=== PATIENT | male | born 1945 | race Caucasian/White ===

== ENCOUNTER 2022-10-27 09:15 | Outpatient (CLI) | payer OTHER, MEDICARE | END 2022-10-27 23:59 | disposition critical access hospital (66) | LOC: EMS 09:15 | DX: M25.512 Pain in left shoulder (principal); R10.9 Unspecified abdominal pain; V23.49XA Other motorcycle driver injured in collision with car, pick-up truck or van in traffic accident, initial encounter; Y92.413 State road as the place of occurrence of the external cause | CPT/HCPCS: A0425; A0429 ==

== ENCOUNTER 2022-10-27 09:41 | Emergency (ER) | payer OTHER, MEDICARE ==
[2022-10-27] MEDS ORDERED: iohexoL-300 100 ML VIAL ONE (09:50)
[2022-10-27] MEDS ORDERED: MORPHINE 2 MG/ML CARPUJECT IVP STA (09:56)
[2022-10-27] MEDS ORDERED: PROPOFOL 200 MG/20 ML VIAL IVP STA (09:56)
[2022-10-27 10:07] LABS: BASOPHILS # (AUTO) 0.1 10^3/uL (0.0-0.1); BASOPHILS % (AUTO) 0.6 %; EOSINOPHILS % (AUTO) 0.4 %; HCT - HEMATOCRIT 45.7 % (42.0-52.0); HGB - HEMOGLOBIN 15.1 g/dL (14.0-18.0); LYMPHOCYTES # (AUTO) 1.1 10^3/uL (1.5-3.5); LYMPHOCYTES % (AUTO) 12.7 %; MEAN CORPUSCULAR VOLUME 90.9 fL (80.0-94.0); MEAN PLATELET VOLUME 10.1 fL (7.4-11.4); MONOCYTES # (AUTO) 0.6 10^3/uL (0.0-1.0); MONOCYTES % (AUTO) 7.1 %; NEUTROPHILS # (AUTO) 6.5 10^3/uL (1.5-6.6); NEUTROPHILS % (AUTO) 78.8 %; PLT - PLATELET COUNT 234 10^3/uL (130-450); RED BLOOD COUNT 5.03 10^6/uL (4.70-6.10); RED CELL DISTRIBUTION WIDTH 13.3 % (12.0-15.0); WHITE BLOOD COUNT 8.3 x10^3/uL (4.8-10.8)
[2022-10-27 10:14] LABS: INR 1.1 (0.8-1.2); PT - PROTHROMBIN TIME 12.2 secs (9.9-12.6)
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
[2022-10-27 10:20] LABS: ALBUMIN 4.5 g/dL (3.2-5.5); ALBUMIN/GLOBULIN RATIO 1.7 (1.0-2.2); BILIRUBIN,TOTAL 0.6 mg/dL (0.2-1.0); CALCIUM 10.2 mg/dL (8.5-10.3); CREATININE 0.8 mg/dL (0.6-1.3); POTASSIUM 3.5 mmol/L (3.5-4.5); TOTAL PROTEIN 7.2 g/dL (6.4-8.9)
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
--- NOTE | 2022-10-27 10:27 | CT Report ---
PROCEDURE: CERVICAL SPINE WO INDICATIONS: TRAUMA/SENIOR CARE TECHNIQUE: Noncontrast 3 mm thick sections acquired from the skull base to the T4 level. Sagittal and coronal r eformats were then constructed. For radiation dose reduction, the following was used: automated exp osure control, adjustment of mA and/or kV according to patient size. COMPARISON: None. FINDINGS: Image quality: Excellent. Bones: No fractures or dislocations. Visualized superior ribs are intact. Extensive multilevel face t arthropathy. Significant multilevel bony foraminal narrowing, including severe left foraminal narro wing at C3-C4 through C6-C7, as well as significant right foraminal narrowing at C3-C4 through C5-C6. Soft tissues: Prevertebral soft tissues are normal in thickness. No paravertebral hematomas. No ap ical pneumothoraces. Question 5 cm right thyroid nodule. IMPRESSION: 1. No acute cervical fracture or dislocation. 2. Cervical spondylosis, with extensive facet arthropathy and significant multilevel foraminal narrow ing. 3. Question 5 cm right thyroid nodule. Comment: Recommend nonemergent thyroid ultrasound for further evaluation. Reviewed by: Jesus Byrnes MD on 10/27/2022 10:25 AM PDT Approved by: Jesus Byrnes MD on 10/27/2022 10:25 AM PDT Station ID: [id number]
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
--- NOTE | 2022-10-27 10:53 | CT Report ---
PROCEDURE: CHEST W INDICATIONS: TRAUMA/PENITENTIARY CONTRAST: 100ml Omni 300 TECHNIQUE: After the administration of intravenous contrast, 1 mm axial images were acquired from the pulmonary apices through the posterior costophrenic angles. Axial 5 mm soft tissue kernel reconstructions were performed as well as 8 mm axial MIP and coronal and sagittal 5 mm reformations. For radiation dose reduction, the following was used: automated exposure control, adjustment of mA and/or kV according to patient size. COMPARISON: CT abdomen and pelvis, CT cervical spine from the same date.. FINDINGS: Image quality: Excellent. Lungs and pleura: No consolidation. No pleural effusions. No pneumothorax. No suspicious pulmonary n odules which require follow up. Mediastinum: Heart size is normal. No pericardial effusion. No large vessel abnormality. No mediastin al adenopathy by size criteria. Chest wall and lower neck: 5 cm right lobe thyroid nodule. No axillary or supraclavicular adenopathy by size. Bones: No aggressive osseous abnormality. There is an anterior lateral left seventh rib fracture, eit her acute or subacute. Upper Abdomen: Unremarkable. IMPRESSION: 1. An anterior lateral left seventh rib fractures either acute or subacute. 2. No other acute findings. 3. 5 cm right thyroid nodule. Comment: Recommend nonemergent thyroid ultrasound. Reviewed by: Jesus Byrnes MD on 10/27/2022 10:51 AM PDT Approved by: Jesus Byrnes MD on 10/27/2022 10:51 AM PDT Station ID: [id number]
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
[2022-10-27 11:18] LABS: BILIRUBIN,URINE NEGATIVE (NEGATIVE); CLARITY,URINE CLEAR (CLEAR); GLUCOSE, URINE (UA) NEGATIVE (NEGATIVE); KETONES,URINE (UA) TRACE mg/dL (NEGATIVE); LEUKOCYTE ESTERASE, URINE MODERATE (NEGATIVE); NITRITE,URINE NEGATIVE (NEGATIVE); OCCULT BLOOD,URINE NEGATIVE (NEGATIVE); PROTEIN,URINE NEGATIVE (NEGATIVE); UROBILINOGEN,URINE 0.2 (NORMAL) E.U./dL (NORMAL)
[2022-10-27 11:31] LABS: BACTERIA,URINE Few /HPF (None Seen); RBC,URINE None Seen /HPF (0-5); SQUAMOUS EPITHELIAL CELL,UR NONE SEEN (<= Few)
[2022-10-27] MEDS ORDERED: iohexoL-300 100 ML VIAL IVP ONE (11:40)
--- NOTE | 2022-10-27 11:52 | XRAY Report ---
PROCEDURE: Shoulder 1 View LT INDICATIONS: post reduction attempt TECHNIQUE: Single AP view of shoulder were acquired. COMPARISON: Left shoulder radiographs performed the same day. FINDINGS: Bones: There has been jain of normal overall alignment on this single AP view. Soft tissues: Previously seen probable intra-articular loose body versus fracture fragment not well visualized. IMPRESSION: [employer] of normal glenohumeral alignment on this AP view. Reviewed by: Raymundo Merino MD on 10/27/2022 11:51 AM PDT Approved by: Raymundo Merino MD on 10/27/2022 11:51 AM PDT Station ID: [id number]
[2022-10-27 12:04] VITALS: BP 107/72; O2SAT 99
== END 2022-10-27 12:00 | disposition home or self-care (01) ==
LOC: EDUNIT# → ED 09:41
DX: S22.42XA Multiple fractures of ribs, left side, initial encounter for closed fracture (principal); S43.005A Unspecified dislocation of left shoulder joint, initial encounter; V29.408A Other motorcycle driver injured in collision with unspecified motor vehicles in traffic accident, initial encounter; Y92.410 Unspecified street and highway as the place of occurrence of the external cause; Z79.899 Other long term (current) drug therapy
CPT/HCPCS: 23655; 36415; 70450; 71045; 71260; 72125; 72128; 72131; 72170; 73020; 73030; 74177; 80053; 81001; 82550; 85025; 85610; 86850; 86900; 86901; 87077; 87086; 87181; 93005; 96374; 99152; 99284; Q9967; 81003